=== PATIENT | female | born 1970 | race Asian ===

== ENCOUNTER 2023-10-16 12:02 | Emergency (ER) | payer MEDICAID ==
[~2023-10-16] VITALS: Ht 162.6 cm; Wt 50.0 kg
[2023-10-16 12:04] VITALS: O2SAT 98
[2023-10-16 12:33] LABS: BASOPHILS % 0.6 % (0.0-2.0); EOSINOPHILS % 1.9 % (0.0-5.0); HEMATOCRIT. 44.4 % (36.0-48.0); HEMOGLOBIN. 14.1 g/dL (12.0-16.0); LYMPHOCYTES % 15.4 % (20.0-50.0); MEAN CORPUSCULAR HGB CONC 31.8 g/dL (31.0-37.0); MEAN CORPUSCULAR VOLUME 81.8 fL (81.0-99.0); MEAN PLATELET VOLUME 8.2 fl (7.4-10.4); MONOCYTES % 4.7 % (2.0-8.0); NEUTROPHILS % 77.4 % (40.0-76.0); PLATELET 220 x1000/uL (130-400); RED BLOOD CELL COUNT 5.43 mill/uL (4.2-5.4); RED CELL DISTRIBUTION WIDTH 15.4 % (11.6-14.6); WHITE BLOOD COUNT 6.8 x1000/uL (4.5-11.0)
[2023-10-16 12:40] LABS: CHLORIDE 108 mEq/L (98-107); POTASSIUM 3.8 mEq/L (3.5-5.1); SODIUM 140 mEq/L (136-145)
[2023-10-16 12:41] LABS: CARBON DIOXIDE 21 mEq/L (21-32)
[2023-10-16 12:42] LABS: CALCIUM 9.1 mg/dL (8.7-10.4)
[2023-10-16 12:46] LABS: CREATININE 1.2 mg/dL (0.6-1.0); GLUCOSE 136 mg/dL (70-105)
[2023-10-16 12:47] LABS: UREA NITROGEN BLOOD 14 mg/dL (9-23)
[2023-10-16 12:48] LABS: ETHANOL BLOOD < 10 mg/dL (<10)
[2023-10-16 14:07] VITALS: BP 162/91; PULSE 86; RESP 21; TEMP 98
== END 2023-10-16 14:23 | disposition home or self-care (01) ==
LOC: EDSEX 12:11 → ER 12:11
DX: R56.9 Unspecified convulsions (principal); Z86.73 Personal history of transient ischemic attack (TIA), and cerebral infarction without residual deficits
CPT/HCPCS: 80048; 80320; 85025; 36415; 71045; 70450; 99284; Z7610; G0480